=== PATIENT | female | born 1980 | race American Indian/Alaskan Native ===

== ENCOUNTER 2016-10-13 12:42 | Emergency (ER) | payer BC ==
[2016-10-13 12:50] VITALS: BP 160/104
[2016-10-13 13:30] LABS: Bilirubin,Urine Negative (Negative); Blood,Urine Trace (Negative); Ketones,Urine Trace mg/dL (Negative)
[2016-10-13 13:31] LABS: Leukocyte Esterase,Urine Negative (Negative); Nitrite,Urine Negative (Negative); Urobilinogen,Urine 0.2 mg/dL (<2.0)
[2016-10-13 13:32] LABS: Mucus,Urine FEW /HPF
[2016-10-13 13:35] LABS: Basophils % (Auto) 0.5 % (0.0-1.8); Hematocrit 46.2 % (30.3-42.9); Hemoglobin 15.2 gm/dl (10.1-14.3); Mean Corpuscular HGB Conc 33 % (30-34); Mean Corpuscular Hemoglobin 30 pg (28-32); Mean Corpuscular Volume 90 fl (79-97); Platelet Count 230 K/mm3 (140-440); Red Blood Count 5.11 M/mm3 (3.65-5.03); White Blood Count 14.3 K/mm3 (4.5-11.0)
[2016-10-13 13:41] LABS: Albumin 4.8 g/dL (3.9-5); Bilirubin,Total 0.5 mg/dL (0.1-1.2); Blood Urea Nitrogen 8 mg/dL (7-17); Calcium 9.2 mg/dL (8.4-10.2); Carbon Dioxide 17 mmol/L (22-30); Glucose 135 mg/dL (65-100); Lipase 23 units/L (13-60); Total Protein 9.5 g/dL (6.3-8.2)
[2016-10-13 13:42] LABS: Anion Gap 28 mmol/L; Chloride 95.1 mmol/L (98-107); Sodium 132 mmol/L (137-145)
[2016-10-13 13:46] LABS: Potassium TNR mmol/L (3.6-5.0)
[2016-10-13 13:47] LABS: Alanine Aminotransferase TNR units/L (7-56)
[2016-10-13 13:48] LABS: Alkaline Phosphatase TNR units/L (35-129)
--- NOTE | 2016-10-17 15:48 | ED Elopement Review ---
ED Pt Elopement review - Results review Lab results: Laboratory Tests 10/13/16 10/13/16 10/13/16 12:58 13:04 13:04 WBC 14.3 H RBC 5.11 H Hgb 15.2 H Hct 46.2 H MCV 90 MCH 30 MCHC 33 RDW 15.0 Plt Count 230 Lymph % (Auto) 9.3 L [place] % (Auto) 1.9 Eos % (Auto) 0.0 Baso % (Auto) 0.5 Lymph # 1.3 [place] # 0.3 Eos # 0.0 Baso # 0.1 Seg Neutrophils % 88.3 H Seg Neutrophils # 12.6 H Sodium 132 L Potassium TNR Chloride 95.1 L Carbon Dioxide 17 L Anion Gap 28 BUN 8 Creatinine 0.5 L Estimated GFR > 60 BUN/Creatinine Ratio 16.00 Glucose 135 H Calcium 9.2 Total Bilirubin 0.5 AST TNR ALT TNR Alkaline Phosphatase TNR Total Protein 9.5 H Albumin 4.8 Albumin/Globulin Ratio 1.0 Lipase 23 Urine Color Yellow Urine Turbidity Hazy Urine pH 7.0 Ur Specific [place] 1.025 Urine Protein 100 mg/dl Urine Glucose (UA) Negative Urine Ketones Trace Urine Blood Trace Urine Nitrite Negative Urine Bilirubin Negative Urine Urobilinogen 0.2 Ur Leukocyte Esterase Negative Urine WBC (Auto) 1.0 Urine RBC (Auto) 5.0 U Epithel Cells (Auto) 3.0 Urine Mucus Few - Call Back decision Pt Call Back Decision: No action required
== END 2016-10-13 16:04 | disposition left against medical advice (07) ==
LOC: ED 12:42
DX: R10.10 Upper abdominal pain, unspecified (principal); R11.2 Nausea with vomiting, unspecified; Z53.21 Procedure and treatment not carried out due to patient leaving prior to being seen by health care provider
CPT/HCPCS: 36415; 80053; 81001; 83690; 85025